=== PATIENT | male | born 1995 | race Caucasian/White ===

== ENCOUNTER → 2017-11-12 | Outpatient (CLI) | payer OTHER ==
[~2017-11-12] MED LIST: GASTROGRAFIN SOLUTION 30ML (Q9963) As Ordered; ISOVUE-370 76% 100ML VIAL (Q9967) As Ordered
== END ==
LOC: M RAD 09:33
DX: D40.11 Neoplasm of uncertain behavior of right testis (principal)

== ENCOUNTER → 2017-11-12 | Outpatient (CLI) | payer OTHER ==
[2017-11-12 17:23] LABS: INR 1.01; PROTHROMBIN TIME 13.4 SECONDS (12.4-14.5)
[2017-11-12 17:41] LABS: ANION GAP 5 MEQ/L (8-16); BLOOD UREA NITROGEN 14 MG/DL (7-18); CALCIUM LEVEL 9.1 MG/DL (8.5-10.1); CARBON DIOXIDE LEVEL 30 MEQ/L (21-32); CHLORIDE LEVEL 107 MEQ/L (98-107); CREATININE FOR GFR 1.02 MG/DL (0.70-1.30); GLOMERULAR FILTRATION RATE > 60.0 (>60); GLUCOSE, FASTING 92 MG/DL (70-100); LDH LACTATE DEHYDROGENASE 195 U/L (87-241); POTASSIUM SERUM 4.7 MEQ/L (3.5-5.1); SODIUM LEVEL 142 MEQ/L (136-145)
[2017-11-12 18:00] LABS: HEMATOCRIT 44.7 % (42.0-52.0); HEMOGLOBIN 15.5 g/dl (14.0-18.0); MEAN CORPUSCULAR HEMOGLOBIN 30.6 pg (27.0-33.0); MEAN CORPUSCULAR HGB CONC 34.7 g/dl (32.0-36.5); MEAN CORPUSCULAR VOLUME 88.2 fl (80.0-96.0); PLATELET COUNT, AUTOMATED 279 10^3/uL (150-450); RED BLOOD COUNT 5.07 10^6/uL (4.30-6.10); RED CELL DISTRIBUTION WIDTH 12.3 % (11.5-14.5); WHITE BLOOD COUNT 7.1 10^3/uL (4.0-10.0)
[2017-11-14 08:07] LABS: HCG SERUM TUMOR MARKER QUANT < 1 mIU/mL (0-3)
[2017-11-14 14:28] LABS: ALPHA FETOPROTEIN TUMOR QUANT 1.7 NG/ML (<8.1)
== END ==
LOC: M SMT 15:07
DX: N50.9 Disorder of male genital organs, unspecified (principal)

== ENCOUNTER → 2017-11-25 | Day surgery (SDC) | payer OTHER ==
[~2017-11-25] MED LIST changes: -GASTROGRAFIN SOLUTION 30ML (Q9963) As Ordered; -ISOVUE-370 76% 100ML VIAL (Q9967) As Ordered; +KETOROLAC 60 MG/2 ML VIAL (J1885) As Ordered; +LIDOCAINE 2% INJ 100 MG/5 ML SDV (FOR ANES.) As Ordered; +LR 1,000 ML IV; +MEPERIDINE INJ 25 MG/ML VIAL (J2175) IV; +METOCLOPRAMIDE INJ 10MG/2ML VIAL (J2765) As Ordered; +METOCLOPRAMIDE INJ 10MG/2ML VIAL (J2765) IV; +MIDAZOLAM INJ 2 MG/2 ML VIAL (J2250) As Ordered; +ONDANSETRON 4MG/2ML VIAL (J2405) As Ordered; +ONDANSETRON 4MG/2ML VIAL (J2405) IV; +PERCOCET 5MG/325MG TAB PO; +PROPOFOL 200 MG/20 ML VIAL As Ordered; +fentaNYL 100 MCG/2 ML INJECTION (J3010) As Ordered; +fentaNYL 100 MCG/2 ML INJECTION (J3010) IV
[2017-11-25] MEDS: LR 1,000 ML IV (10:05)
[2017-11-25] MEDS: LIDOCAINE 2% MDV 20 ML VIAL As Ordered (12:41)
[2017-11-25] MEDS: BUPIVACAINE HCL 0.25% 30 ML VIAL As Ordered (12:42)
== END | disposition home or self-care (01) ==
LOC: M SDC 09:39
DX: C62.91 Malignant neoplasm of right testis, unspecified whether descended or undescended (principal); F17.210 Nicotine dependence, cigarettes, uncomplicated
CPT/HCPCS: 54530

== ENCOUNTER → 2017-12-16 | Outpatient (CLI) | payer OTHER ==
[2017-12-16 13:22] LABS: APPEARANCE, URINE CLEAR (CLEAR); BACTERIA, URINE AUTO NEGATIVE (NEGATIVE); BILIRUBIN, URINE AUTO NEGATIVE (NEGATIVE); BLOOD, URINE BLOOD NEGATIVE (NEGATIVE); COLOR, URINE STRAW (YELLOW); GLUCOSE, URINE (UA) AUTO NEGATIVE (NEGATIVE); KETONE, URINE AUTO NEGATIVE (NEGATIVE); LEUKOCYTE ESTERASE, URINE AUTO NEGATIVE (NEGATIVE); NITRITE, URINE AUTO NEGATIVE (NEGATIVE); PROTEIN, URINE AUTO NEGATIVE (NEGATIVE); RBC, URINE AUTO 0 /HPF (0-3); SPECIFIC GRAVITY URINE AUTO 1.004 (1.002-1.035); SQUAMOUS EPITHELIAL CELL UR AU 0 /HPF (0-6); UROBILINOGEN, URINE AUTO 0.2 mg/dL (0.0-2.0); WBC, URINE AUTO 0 /HPF (0-3)
[2017-12-16 13:59] LABS: ANION GAP 6 MEQ/L (8-16); BLOOD UREA NITROGEN 11 MG/DL (7-18); CALCIUM LEVEL 9.1 MG/DL (8.5-10.1); CARBON DIOXIDE LEVEL 28 MEQ/L (21-32); CHLORIDE LEVEL 107 MEQ/L (98-107); CREATININE FOR GFR 0.87 MG/DL (0.70-1.30); GLOMERULAR FILTRATION RATE > 60.0 (>60); GLUCOSE, FASTING 87 MG/DL (70-100); LDH LACTATE DEHYDROGENASE 182 U/L (87-241); POTASSIUM SERUM 4.5 MEQ/L (3.5-5.1); SODIUM LEVEL 141 MEQ/L (136-145)
[2017-12-16 14:01] LABS: HEMATOCRIT 45.5 % (42.0-52.0); HEMOGLOBIN 15.9 g/dl (14.0-18.0); MEAN CORPUSCULAR HEMOGLOBIN 30.3 pg (27.0-33.0); MEAN CORPUSCULAR HGB CONC 34.9 g/dl (32.0-36.5); MEAN CORPUSCULAR VOLUME 86.7 fl (80.0-96.0); PLATELET COUNT, AUTOMATED 297 10^3/uL (150-450); RED BLOOD COUNT 5.25 10^6/uL (4.30-6.10); RED CELL DISTRIBUTION WIDTH 12.2 % (11.5-14.5); WHITE BLOOD COUNT 5.5 10^3/uL (4.0-10.0)
[2017-12-16 14:02] LABS: ALPHA FETOPROTEIN TUMOR QUANT 1.9 NG/ML (<8.1)
[2017-12-16 14:16] LABS: INR 0.99; PROTHROMBIN TIME 13.2 SECONDS (12.4-14.5)
[2017-12-16 14:17] LABS: PARTIAL THROMBOPLASTIN TIME 28.1 SECONDS (26.8-37.9)
[2017-12-17 08:07] LABS: HCG SERUM TUMOR MARKER QUANT < 1 mIU/mL (0-3)
== END ==
LOC: M LAB 12:39
DX: C62.12 Malignant neoplasm of descended left testis (principal)
CPT/HCPCS: 71046

== ENCOUNTER 2018-01-24 14:57 | Emergency (ER) | payer OTHER ==
[2018-01-24 15:49] LABS: KETONE, URINE AUTO RFX NEGATIVE (NEGATIVE); LEUKOCYTE ESTERASE UR AUTO RFX NEGATIVE (NEGATIVE); NITRITE, URINE AUTO RFX NEGATIVE (NEGATIVE); RBC, URINE AUTO RFX 0 /HPF (0-3); SPECIFIC GRAVITY UR AUTO RFX 1.012 (1.002-1.035); SQUAM EPITHELIAL CELL UR AURFX 0 /HPF (0-6); WBC, URINE AUTO RFX 0 /HPF (0-3)
== END 2018-01-24 21:36 | disposition home or self-care (01) ==
LOC: M ED 14:57
DX: L76.82 Other postprocedural complications of skin and subcutaneous tissue (principal); R59.0 Localized enlarged lymph nodes; Z90.79 Acquired absence of other genital organ(s); C62.90 Malignant neoplasm of unspecified testis, unspecified whether descended or undescended; N50.3 Cyst of epididymis; Z79.899 Other long term (current) drug therapy
CPT/HCPCS: 76870

== ENCOUNTER → 2018-03-05 | Outpatient (CLI) | payer OTHER | LOC: M CARPUL 12:43 | DX: C62.90 Malignant neoplasm of unspecified testis, unspecified whether descended or undescended (principal) | CPT/HCPCS: 94010 ==

== ENCOUNTER → 2018-03-05 | Outpatient (CLI) | payer OTHER ==
[2018-03-05 13:24] LABS: HEMATOCRIT 43.9 % (42.0-52.0); HEMOGLOBIN 15.7 g/dl (13.5-17.5); MEAN CORPUSCULAR HEMOGLOBIN 30.5 pg (27.0-33.0); MEAN CORPUSCULAR HGB CONC 35.8 g/dl (32.0-36.5); MEAN CORPUSCULAR VOLUME 85.4 fl (80.0-96.0); PLATELET COUNT, AUTOMATED 245 10^3/uL (150-450); RED BLOOD COUNT 5.14 10^6/uL (4.30-6.10); RED CELL DISTRIBUTION WIDTH 12.4 % (11.5-14.5); WHITE BLOOD COUNT 5.7 10^3/uL (4.0-10.0)
[2018-03-05 14:11] LABS: ANION GAP 5 MEQ/L (8-16); BLOOD UREA NITROGEN 10 MG/DL (7-18); CALCIUM LEVEL 9.1 MG/DL (8.5-10.1); CARBON DIOXIDE LEVEL 28 MEQ/L (21-32); CHLORIDE LEVEL 108 MEQ/L (98-107); GLOMERULAR FILTRATION RATE > 60.0 (>60); GLUCOSE, FASTING 88 MG/DL (70-100); LDH LACTATE DEHYDROGENASE 167 U/L (87-241); POTASSIUM SERUM 4.1 MEQ/L (3.5-5.1); SODIUM LEVEL 141 MEQ/L (136-145)
[2018-03-06 08:06] LABS: HCG SERUM TUMOR MARKER QUANT < 1 mIU/mL (0-3)
[2018-03-06 10:11] LABS: ALPHA FETOPROTEIN TUMOR QUANT 2.3 NG/ML (<8.1)
== END ==
LOC: M LAB 12:46
DX: C62.11 Malignant neoplasm of descended right testis (principal)
CPT/HCPCS: 83615

== ENCOUNTER → 2018-04-24 | Outpatient (REF) | payer OTHER | LOC: M LAB REF 13:44 | DX: C62.11 Malignant neoplasm of descended right testis (principal) ==

== ENCOUNTER → 2018-04-28 | Outpatient (REF) | payer OTHER ==
[2018-04-28 13:39] LABS: APPEARANCE, URINE CLEAR (CLEAR); BACTERIA, URINE AUTO NEGATIVE (NEGATIVE); BILIRUBIN, URINE AUTO NEGATIVE (NEGATIVE); BLOOD, URINE BLOOD NEGATIVE (NEGATIVE); COLOR, URINE YELLOW (YELLOW); GLUCOSE, URINE (UA) AUTO NEGATIVE (NEGATIVE); KETONE, URINE AUTO NEGATIVE (NEGATIVE); LEUKOCYTE ESTERASE, URINE AUTO NEGATIVE (NEGATIVE); NITRITE, URINE AUTO NEGATIVE (NEGATIVE); PROTEIN, URINE AUTO NEGATIVE (NEGATIVE); RBC, URINE AUTO 1 /HPF (0-3); SPECIFIC GRAVITY URINE AUTO 1.013 (1.002-1.035); SQUAMOUS EPITHELIAL CELL UR AU 0 /HPF (0-6); UROBILINOGEN, URINE AUTO 0.2 mg/dL (0.0-2.0); WBC, URINE AUTO 1 /HPF (0-3)
== END ==
LOC: M LAB REF 13:21
DX: Z00.00 Encounter for general adult medical examination without abnormal findings (principal)
CPT/HCPCS: 81001

== ENCOUNTER → 2018-05-11 | Outpatient (REF) | payer OTHER ==
[2018-05-11 13:49] LABS: MAGNESIUM LEVEL 2.2 MG/DL (1.8-2.4)
== END ==
LOC: M LAB REF 13:16
DX: C62.91 Malignant neoplasm of right testis, unspecified whether descended or undescended (principal)

== ENCOUNTER → 2018-05-18 | Outpatient (REF) | payer OTHER ==
[2018-05-18 19:02] LABS: APPEARANCE, URINE CLEAR (CLEAR); BACTERIA, URINE AUTO NEGATIVE (NEGATIVE); BILIRUBIN, URINE AUTO NEGATIVE (NEGATIVE); BLOOD, URINE BLOOD NEGATIVE (NEGATIVE); COLOR, URINE STRAW (YELLOW); GLUCOSE, URINE (UA) AUTO NEGATIVE (NEGATIVE); KETONE, URINE AUTO NEGATIVE (NEGATIVE); LEUKOCYTE ESTERASE, URINE AUTO NEGATIVE (NEGATIVE); NITRITE, URINE AUTO NEGATIVE (NEGATIVE); PROTEIN, URINE AUTO NEGATIVE (NEGATIVE); RBC, URINE AUTO 1 /HPF (0-3); SPECIFIC GRAVITY URINE AUTO 1.009 (1.002-1.035); SQUAMOUS EPITHELIAL CELL UR AU 0 /HPF (0-6); UROBILINOGEN, URINE AUTO 0.2 mg/dL (0.0-2.0); WBC, URINE AUTO 0 /HPF (0-3)
== END ==
LOC: M LAB REF 16:48
DX: C62.91 Malignant neoplasm of right testis, unspecified whether descended or undescended (principal)
CPT/HCPCS: 81001

== ENCOUNTER → 2018-07-02 | Outpatient (CLI) | payer OTHER ==
[2018-07-02 19:21] LABS: HEMOGLOBIN 13.8 g/dl (13.5-17.5); MEAN CORPUSCULAR HEMOGLOBIN 30.3 pg (27.0-33.0); MEAN CORPUSCULAR HGB CONC 33.7 g/dl (32.0-36.5); MEAN CORPUSCULAR VOLUME 90.1 fl (80.0-96.0); PLATELET COUNT, AUTOMATED 206 10^3/uL (150-450); RED BLOOD COUNT 4.55 10^6/uL (4.30-6.10); RED CELL DISTRIBUTION WIDTH 13.3 % (11.5-14.5); WHITE BLOOD COUNT 6.8 10^3/uL (4.0-10.0)
[2018-07-02 19:43] LABS: ANION GAP 8 MEQ/L (8-16); BLOOD UREA NITROGEN 11 MG/DL (7-18); CALCIUM LEVEL 9.4 MG/DL (8.5-10.1); CARBON DIOXIDE LEVEL 27 MEQ/L (21-32); CHLORIDE LEVEL 111 MEQ/L (98-107); CREATININE FOR GFR 1.05 MG/DL (0.70-1.30); GLOMERULAR FILTRATION RATE > 60.0 (>60); GLUCOSE, FASTING 83 MG/DL (70-100); LDH LACTATE DEHYDROGENASE 213 U/L (87-241); POTASSIUM SERUM 4.6 MEQ/L (3.5-5.1); SODIUM LEVEL 146 MEQ/L (136-145)
[2018-07-03 10:01] LABS: ALPHA FETOPROTEIN TUMOR QUANT 2.1 NG/ML (<8.1)
[2018-07-04 08:52] LABS: HCG SERUM TUMOR MARKER QUANT < 1 mIU/mL (0-3)
== END ==
LOC: M SMT 15:06
DX: C62.11 Malignant neoplasm of descended right testis (principal)
CPT/HCPCS: 83615

== ENCOUNTER → 2018-07-29 | Outpatient (CLI) | payer OTHER ==
[~2018-07-29] MED LIST changes: +GASTROGRAFIN SOLUTION 30ML (Q9963) As Ordered; +ISOVUE-370 76% 100ML VIAL (Q9967) As Ordered; -KETOROLAC 60 MG/2 ML VIAL (J1885) As Ordered; -LIDOCAINE 2% INJ 100 MG/5 ML SDV (FOR ANES.) As Ordered; -LR 1,000 ML IV; -MEPERIDINE INJ 25 MG/ML VIAL (J2175) IV; -METOCLOPRAMIDE INJ 10MG/2ML VIAL (J2765) As Ordered; -METOCLOPRAMIDE INJ 10MG/2ML VIAL (J2765) IV; -MIDAZOLAM INJ 2 MG/2 ML VIAL (J2250) As Ordered; -ONDANSETRON 4MG/2ML VIAL (J2405) As Ordered; -ONDANSETRON 4MG/2ML VIAL (J2405) IV; -PERCOCET 5MG/325MG TAB PO; -PROPOFOL 200 MG/20 ML VIAL As Ordered; -fentaNYL 100 MCG/2 ML INJECTION (J3010) As Ordered; -fentaNYL 100 MCG/2 ML INJECTION (J3010) IV
== END ==
LOC: M RAD 15:24
DX: C62.91 Malignant neoplasm of right testis, unspecified whether descended or undescended (principal)
CPT/HCPCS: Q9963

== ENCOUNTER → 2018-08-21 | Outpatient (CLI) | payer OTHER | LOC: M RAD 07:13 | DX: R91.1 Solitary pulmonary nodule (principal) | CPT/HCPCS: 71250 ==

== ENCOUNTER → 2018-09-09 | Outpatient (CLI) | payer OTHER | LOC: M PLARAD 07:57 | DX: R91.1 Solitary pulmonary nodule (principal); Z85.47 Personal history of malignant neoplasm of testis; Z97.8 Presence of other specified devices; Z92.21 Personal history of antineoplastic chemotherapy | CPT/HCPCS: 78815 ==

== ENCOUNTER → 2018-09-22 | Outpatient (CLI) | payer OTHER ==
[2018-09-22 12:26] LABS: LDH LACTATE DEHYDROGENASE 206 U/L (87-241)
[2018-09-22 12:36] LABS: ALPHA FETOPROTEIN TUMOR QUANT 2.7 NG/ML (<8.1)
[2018-09-23 08:06] LABS: HCG SERUM TUMOR MARKER QUANT < 1 mIU/mL (0-3)
== END ==
LOC: M LAB 11:04
DX: C62.11 Malignant neoplasm of descended right testis (principal)
CPT/HCPCS: 83615

== ENCOUNTER → 2018-12-15 | Outpatient (CLI) | payer OTHER ==
[~2018-12-15] MED LIST changes: +BACT800T5 PO; -GASTROGRAFIN SOLUTION 30ML (Q9963) As Ordered; -ISOVUE-370 76% 100ML VIAL (Q9967) As Ordered; +OXYC1TAB23 PO; +PROP60CA PO; +PROP60TA14 PO; +SULFAMETHOXAZOLE-TMP; +TYLE650T35 PO
[2018-12-15 18:26] LABS: BLOOD UREA NITROGEN 11 MG/DL (7-18); CALCIUM LEVEL 8.4 MG/DL (8.5-10.1); CARBON DIOXIDE LEVEL 31 MEQ/L (21-32); CHLORIDE LEVEL 108 MEQ/L (98-107); CREATININE FOR GFR 0.93 MG/DL (0.70-1.30); GLOMERULAR FILTRATION RATE > 60.0 (>60); GLUCOSE, FASTING 79 MG/DL (70-100); HEMATOCRIT 39.4 % (42.0-52.0); HEMOGLOBIN 13.8 g/dl (13.5-17.5); LDH LACTATE DEHYDROGENASE 180 U/L (87-241); MEAN CORPUSCULAR HEMOGLOBIN 30.1 pg (27.0-33.0); MEAN CORPUSCULAR VOLUME 85.8 fl (80.0-96.0); PLATELET COUNT, AUTOMATED 237 10^3/uL (150-450); POTASSIUM SERUM 4.3 MEQ/L (3.5-5.1); RED BLOOD COUNT 4.59 10^6/uL (4.30-6.10); SODIUM LEVEL 145 MEQ/L (136-145); WHITE BLOOD COUNT 7.5 10^3/uL (4.0-10.0)
== END ==
LOC: M SMT 13:45
PROVIDERS: ATTEND Nurse Practitioner Women's Health
DX: C62.11 Malignant neoplasm of descended right testis (principal)

== ENCOUNTER → 2018-12-29 | Outpatient (CLI) | payer OTHER ==
--- NOTE | 2018-12-30 05:56 | REP ---
Clinical: Enlarged testicle. Comparison: 01/24/2018. Technique: Real time ocampo scale and color Doppler evaluation using linear high frequency transducer. Findings: The patient is noted to be status post right orchiectomy. The left testicle is normal in contour, size, and echogenicity/vascularity and measures 4.3 x 3.0 x 3.4 cm. Moderate left-sided hydrocele is identified which may be related to the scrotal enlargement. Multiple left-sided varicoceles measure up to approximately 3.3 mm diameter. There is no evidence for torsion, infectious/inflammatory process, or intratesticular mass lesion. Incidental 2.4 mm left epididymal head cyst noted. Impression: 1. Evidence for prior right orchiectomy. 2. Moderate left-sided hydrocele. 3. Few left-sided varicoceles measure up to 3.3 mm diameter. Electronically Signed by Jayden Longo MD 12/30/2018 05:48 A
== END ==
LOC: M RAD 15:05
PROVIDERS: ATTEND Urology
DX: N43.2 Other hydrocele (principal); I86.1 Scrotal varices; Z90.79 Acquired absence of other genital organ(s)

== ENCOUNTER → 2019-02-17 | Outpatient (CLI) | payer OTHER ==
[~2019-02-17] MED LIST changes: +BUPIVACAINE HCL 0.5% 10 ML VIAL As Ordered ONE; +LIDOCAINE 2% MDV 20 ML VIAL As Ordered ONE
--- NOTE | 2019-03-19 08:40 | REPIR ---
DATE OF SERVICE: 02/17/2019 PREOPERATIVE DIAGNOSIS: Testicular cancer, status post placement of a right internal jugular vein tunneled central venous catheter with subcutaneous port, painful right chest scar. POSTOPERATIVE DIAGNOSIS: Testicular cancer, status post placement of a right internal jugular vein tunneled central venous catheter with subcutaneous port, painful right chest scar. PROCEDURE: Right internal jugular vein tunneled central venous catheter with subcutaneous port removal and scar revision. ATTENDING SURGEON: Dr. Sabrina Garcia REPORT CLERK: Bre Almonte INDICATION: The patient is a 23-year-old male who had placement of a Port-A-Cath with chemotherapy for testicular cancer who now no longer requires the Port-A-Cath and will undergo removal. The patient has a large scar from the previous insertion which is painful and will be revised. ANESTHESIA: Local with 10 mL of local. FLUORO TIME: 0.1 minutes. CONTRAST: None. COMPLICATIONS: None. DRAINS: None. SPECIMEN: None. IMPLANTS: None. DESCRIPTION OF PROCEDURE: The patient was taken to the angiography suite, placed supine on the angiography room table and then prepped and draped in a standard surgical fashion. The old scar was excised after anesthetizing the overlying skin and subcutaneous tissue. The port was then removed with the incision being closed using #3-0 Monocryl in inverted interrupted fashion. Steri-Strips and dressings were applied. The patient tolerated the procedure well. All instrument, sponge and needle counts were correct at the end of the case. There were no complications. Dr. Garcia was present for and directed the entire case. The patient was transferred to the holding area and subsequently discharged in stable condition.
== END | disposition home or self-care (01) ==
LOC: M IRPRO 02-12 11:20
PROVIDERS: ATTEND Internal Medicine Hematology & Oncology
DX: Z45.2 Encounter for adjustment and management of vascular access device (principal); L90.5 Scar conditions and fibrosis of skin; C62.90 Malignant neoplasm of unspecified testis, unspecified whether descended or undescended

== ENCOUNTER → 2019-07-02 | Outpatient (CLI) | payer OTHER ==
[~2019-07-02] MED LIST changes: -BUPIVACAINE HCL 0.5% 10 ML VIAL As Ordered ONE; -LIDOCAINE 2% MDV 20 ML VIAL As Ordered ONE
--- NOTE | 2019-07-02 13:39 | REP ---
T of the chest without IV contrast for follow up of lung nodules: Comparisons are 12/14/2018 and 08/21/2018. There is a nodule far medially in the deep posterior sulcus of the right lower lobe today measuring 8 x 6 mm. This measured 9 x 6 mm 08/21/2018. However, the nodule has changed configuration from study to study. On 08/21/2018 has somewhat elongated configuration. On 12/14/2018 and have a somewhat curvilinear configuration. On the study today there is a curvilinear angulation superiorly and nodular configuration more inferiorly. These changes in configuration and may be from differences in slice selection from study to study. Overall there is no significant interval size increase. There is a small 5 mm triangular nodule in the right middle lobe on image 60, unchanged from both prior studies. There are no new nodules. There are no acute infiltrates or pleural effusions. The there is no mediastinal adenopathy. The study is insensitive for hilar adenopathy in the absence of IV contrast. There is no axillary adenopathy. The unenhanced thoracic aorta is unremarkable. Cardiac size is normal. The visualized upper abdominal contents are unremarkable. There is no adrenal mass. Impression: There are two right lung nodules as described that have not significantly increased in size. Otherwise, negative CT study of the chest. I would recommend follow-up chest CT in 1 year for further evaluation of lung nodules. Electronically Signed by Roby Hamilton MD 07/02/2019 01:31 P
== END ==
LOC: M RAD 10:48
PROVIDERS: ATTEND Internal Medicine Pulmonary Disease
DX: R91.8 Other nonspecific abnormal finding of lung field (principal)

== ENCOUNTER → 2019-07-09 | Outpatient (CLI) | payer OTHER ==
[2019-07-09 15:26] LABS: HEMATOCRIT 41.9 % (42.0-52.0); HEMOGLOBIN 14.3 g/dl (13.5-17.5); MEAN CORPUSCULAR HEMOGLOBIN 29.7 pg (27.0-33.0); MEAN CORPUSCULAR HGB CONC 34.1 g/dl (32.0-36.5); MEAN CORPUSCULAR VOLUME 87.1 fl (80.0-96.0); PLATELET COUNT, AUTOMATED 209 10^3/uL (150-450); RED BLOOD COUNT 4.81 10^6/uL (4.30-6.10); WHITE BLOOD COUNT 5.7 10^3/uL (4.0-10.0)
[2019-07-09 15:53] LABS: BLOOD UREA NITROGEN 13 MG/DL (7-18); CALCIUM LEVEL 9.3 MG/DL (8.5-10.1); CARBON DIOXIDE LEVEL 28 MEQ/L (21-32); CHLORIDE LEVEL 106 MEQ/L (98-107); CREATININE FOR GFR 0.86 MG/DL (0.70-1.30); GLOMERULAR FILTRATION RATE > 60.0 (>60); GLUCOSE, FASTING 81 MG/DL (70-100); LDH LACTATE DEHYDROGENASE 192 U/L (87-241); POTASSIUM SERUM 4.2 MEQ/L (3.5-5.1); SODIUM LEVEL 141 MEQ/L (136-145)
== END ==
LOC: M SMT 10:39
PROVIDERS: ATTEND Nurse Practitioner Women's Health
DX: C62.11 Malignant neoplasm of descended right testis (principal)